=== PATIENT | female | born 2000 | race Caucasian/White ===

== ENCOUNTER → 2023-07-20 | Outpatient (CLI) | payer BC ==
[~2023-07-20] MED LIST: GLUCAGON INJ 1MG VIAL As Ordered ONE; ISOVUE-370 76% 100ML VIAL As Ordered ONE; NEULUMEX 0.1% SUSPENSION 450ML BOTTLE (FORMERLY VOLUMEN) As Ordered ONE
== END ==
LOC: M RAD 14:25
PROVIDERS: ATTEND Internal Medicine Gastroenterology
DX: K50.00 Crohn's disease of small intestine without complications (principal)
CPT/HCPCS: 74177; J1610; Q9967

== ENCOUNTER 2023-08-21 08:30 | Day surgery (SDC) | payer BC ==
[~2023-08-21] VITALS: Ht 157.5 cm; Wt 72.6 kg
[~2023-08-21 08:30] MED LIST changes: -GLUCAGON INJ 1MG VIAL As Ordered ONE; -ISOVUE-370 76% 100ML VIAL As Ordered ONE; -NEULUMEX 0.1% SUSPENSION 450ML BOTTLE (FORMERLY VOLUMEN) As Ordered ONE; +NS 1,000 ML IV ONE
[2023-08-21] MEDS ORDERED: GLYCOPYRROLATE INJ 0.2 MG/ML 2 ML VIAL As Ordered ONE (09:25)
[2023-08-21] MEDS ORDERED: propofoL 200 MG/20 ML VIAL As Ordered ONE ×2 (09:25→09:35)
[2023-08-21 09:42] VITALS: TEMP 98.6
[2023-08-21 09:55] VITALS: BP 121/76; O2SAT 100
== END 2023-08-21 10:03 | disposition home or self-care (01) ==
LOC: M OPP 08:30
PROVIDERS: ATTEND Internal Medicine Gastroenterology
DX: K63.5 Polyp of colon (principal); K58.1 Irritable bowel syndrome with constipation; R19.4 Change in bowel habit